=== PATIENT | female | born 1985 | race Caucasian/White ===

== ENCOUNTER 2020-02-06 21:53 | Emergency (ER) | payer MEDICAID, SELFPAY ==
[~2020-02-06] VITALS: Ht 154.9 cm; Wt 95.3 kg
[2020-02-06 22:25] VITALS: BP 128/76
--- NOTE | 2020-02-06 23:52 | NUR ---
COVID SWAB COLLECTED AND SENT TO LAB.
[2020-02-06 23:53] VITALS: BP 128/76
--- NOTE | 2020-02-06 23:53 | NUR ---
Patient discharged with v/s stable. Written and verbal after care instructions given and explained. Patient verbalized understanding. Ambulatory with steady gait. All questions addressed prior to discharge. Advised to follow up with PMD.
== END 2020-02-06 23:53 | disposition home or self-care (01) ==
LOC: MED 21:53 → EEVIPCON 21:53 → MED 23:53
DX: Z20.828 Contact with and (suspected) exposure to other viral communicable diseases (principal); Z90.49 Acquired absence of other specified parts of digestive tract; Z88.0 Allergy status to penicillin; Z88.1 Allergy status to other antibiotic agents
CPT/HCPCS: 99283; U0003